=== PATIENT | female | born 1985 | race Caucasian/White ===

== ENCOUNTER 2017-01-28 14:09 | Emergency (ER) | payer SELFPAY ==
[~2017-01-28] VITALS: Ht 152.4 cm; Wt 78.0 kg
[~2017-01-28 14:09] MED LIST: CEPH500C3 PO; DICL50TA3 PO; IBUP800T23 PO
[2017-01-28 14:14] VITALS: BP 177/85; PULSE 66; RESP 22; TEMP 99; O2SAT 100; O2SAT 66
--- NOTE | 2017-01-28 14:30 | PD ---
Physical Exam Time Seen by Provider: 14:29 Narrative 31-year-old female presents to emergency Department with complaint of low back pain 2 weeks. Denies injury. Denies IV drug use or cancer. Denies fever, vomiting. Patient ambulatory in triage. Patient seen in triage. Vital signs reviewed. Patient awaiting bed placement. Data Data Last Documented VS Vital Signs Date Time Temp Pulse Resp B/P (MAP) Pulse Ox O2 Delivery O2 Flow Rate FiO2 01/28/17 14:14 99.0 66 22 177/85 (115) 100 MDM Supervised Visit with JOE: Eloise Mendoza Jan 28, 2017 14:30
--- NOTE | 2017-01-28 15:32 | PD ---
HPI Chief Complaint: Back/ Neck Pain or Injury Time Seen by Provider: 15:24 Travel History International Travel<30 days: No Contact w/Intl Traveler<30days: No Traveled to known affect area: No History of Present Illness HPI 31-year-old female presents to emergency department for evaluation of low back pain persisting over the last 2 weeks. Patient states that it started when she bent over to pickle cutter something. It has persisted since and is exacerbated when she goes to pickle cutter anything else. Pain is a dull ache, moderate in severity. Does not radiate anywhere. Denies any urinary symptoms. Denies any fever or chills. Denies any focal deficits or weakness, no loss of bowel or bladder, no lower extremity weakness. She has no other symptoms to report this time. History Social History Alcohol Use: No Tobacco Use: Yes (1 pack per 3-4 days) Allergies-Medications (Allergen,Severity, Reaction): Coded Allergies: penicillin G (Unverified Allergy, Severe, palpitations, 01/28/17) Reported Meds & Prescriptions Reported Meds & Active Scripts Active Diclofenac Sodium 50 Mg Tab 50 Mg PO BID PRN Ibuprofen 800 Mg Tab 800 Mg PO TID PRN Keflex (Cephalexin Monohydrate) 500 Mg Cap 500 Mg PO Q8 Review of Systems Except as stated in HPI: all other systems reviewed are Neg Physical Exam Narrative GENERAL: Well-nourished, well-developed email patient, ambulatory with a nonantalgic gait no acute distress SKIN: Focused skin assessment warm/dry. HEAD: Normocephalic. EYES: No scleral icterus. No injection or drainage. NECK: Supple, trachea midline. No JVD or lymphadenopathy. CARDIOVASCULAR: Regular rate and rhythm without murmurs, gallops, or rubs. RESPIRATORY: Breath sounds equal bilaterally. No accessory muscle use. GASTROINTESTINAL: Abdomen soft, non-tender, nondistended. MUSCULOSKELETAL: No cyanosis, or edema. 5 Plus strength equal bilateral lower extremity. There is no hyper reflexivity. Downward facing Babinski. Tenderness elicited palpation lumbar paraspinous musculature. No spinal tenderness. BACK: Nontender without obvious deformity. No CVA tenderness. Data Data Last Documented VS Vital Signs Date Time Temp Pulse Resp B/P (MAP) Pulse Ox O2 Delivery O2 Flow Rate FiO2 01/28/17 14:14 99.0 66 22 177/85 (115) 100 MDM Medical Screen Exam Complete: Yes Emergency Medical Condition: No Differential Diagnosis Low back strain Narrative Course 31-year-old female presents to emergency room for evaluation of low back pain 2 weeks. Patient has not taken anything for her pain. She has no spinal tenderness. No history of IV drug use. No focal deficits or weakness. This is likely a low back strain. I've encouraged [id number] NSAID therapy and follow-up with a primary care provider. At this time there are no urgent or emergent need for medical intervention identified. A medical screening exam was performed: At the time of evaluation the presenting medical condition was determined not to be of an emergent nature. The patient was given the option of receiving additional care, but declined. Patient was given options for additional community resources from which to obtain care. The Patient Has Been advised to seek medical attention for their presenting complaint. The patient has been advised to return to the ER at any time if an emergent condition develops. Primary Impression: Encounter for medical screening examination Condition: Stable Nola Jara Jan 28, 2017 15:32
== END 2017-01-28 15:42 | disposition left against medical advice (07) ==
LOC: NEPK 14:09
DX: M54.5 Low back pain (principal); F17.200 Nicotine dependence, unspecified, uncomplicated
CPT/HCPCS: 99281